=== PATIENT | male | born 1945 | race Caucasian/White ===

== ENCOUNTER → 2017-11-27 | Outpatient (CLI) | payer MEDICARE, OTHER ==
[~2017-11-27] MED LIST: AMOX1XR PO; ASPI325 PO; ATEN50 PO; Cyanocobalamin5 GM PO; HYDGUAL120 PO; LIOT25 PO; Omeprazole20 M1; PERI4 PO; THREONINE PO
== END ==
LOC: LAB EV 17:49
DX: N39.0 Urinary tract infection, site not specified (principal)
CPT/HCPCS: 87086

== ENCOUNTER 2020-12-17 09:51 | Day surgery (SDC) | payer MEDICARE, OTHER ==
[~2020-12-17] VITALS: Ht 188 cm; Wt 119.6 kg
[~2020-12-17 09:51] MED LIST changes: +ATOR40TA PO; +Aspir 8181 MG PO; +CYAN500 PO; -Cyanocobalamin5 GM PO; +ESCI10 PO; +FOLI1 PO; +LEVO T PO; +LIOT5 PO; +METTREX2.5 PO; -Omeprazole20 M1; +Omeprazole20 M1 PO; +PERINDOPRIL ERBU4 MG PO
--- NOTE | 2020-12-17 11:24 | NUR ---
12/17/20 1124 ReaganMarisol Anai PT BROUGHT INTO ENDO ROOM AND ATTACHED TO MONITORS. TIME OUT COMPLETED AND PATIENT WAS TURNED ON LEFT SIDE AND GIVEN 30MG LIDOCAINE IV AND 40MG PROPOFOL IV. PATIENT THEN WENT INTO AFIB AND ANESTHESIOLOGIST REQUESTED TO ENDO ROOM [address] VILLARREAL CAME IN TO ENDO ROOM AND ORDERED 12 LEAD EKG. EKG SHOWED NEW ONSET OF AFIB. PER DR. VILLARREAL PATIENT IS TO BE TAKEN TO ER. PATIENT TRANSFERED TO ER VIA WHEELCHAIR AND REPORT GIVEN. PATIENT REMAINED ASYMPTOMATIC THE ENTIRE TIME. PATIENTS CALLED AND INFORMED OF EVENT AND WAS ADVISED TO GO TO ER.
[2020-12-17] MEDS ORDERED: ELIQUIS5 MG PO (13:18)
== END 2020-12-17 13:00 | disposition home or self-care (01) ==
LOC: ORSCSDS 09:51
PROVIDERS: Internal Medicine Gastroenterology
PROC: 0DJD8ZZ Inspection of Lower Intestinal Tract, Via Natural or Artificial Opening Endoscopic (ICD-10-PCS; principal; 2020-12-17 11:00)
DX: Z12.11 Encounter for screening for malignant neoplasm of colon (principal); Z86.010 Personal history of colon polyps; I48.91 Unspecified atrial fibrillation; I25.10 Atherosclerotic heart disease of native coronary artery without angina pectoris; Z87.11 Personal history of peptic ulcer disease; I10 Essential (primary) hypertension; Z87.891 Personal history of nicotine dependence; Z79.82 Long term (current) use of aspirin; Z79.899 Other long term (current) drug therapy
CPT/HCPCS: 71046; 80053; 83735; 84439; 84443; 85025; 85610; 93005; 93010; 99285-25; J2704; J7120